=== PATIENT | male | born 1950 | race Asian ===

== ENCOUNTER 2019-03-14 16:40 | Emergency (ER) | payer MEDICAID ==
[~2019-03-14] VITALS: Ht 172.7 cm; Wt 91.6 kg
[2019-03-14 16:44] VITALS: Ht 172.7 cm; Wt 91.6 kg
[2019-03-14] MEDS ORDERED: KETOROLAC 30 MG INJ IM STA (17:25)
[2019-03-14] MEDS ORDERED: DEXAMETHASONE 10 MG/ML 1 ML INJ IM ONE (17:30)
--- NOTE | 2019-03-14 17:45 | ERD ---
ER Documentation Chief Complaint Chief Complaint COUGH X 4 DAYS , LT SIDE RIB PAIN WITH COUGH HPI 68-year-old male with past medical history of hypertension, diabetes who presents with complaint of dry cough over the past 4 days. Describes left upper quadrant pain with coughing. Denies recent fall or injury. Pain not made worse with moving only worsened with cough, nontender to touch. He otherwise denies fever, chills, chest pain, shortness of breath, dyspnea on exertion, nausea, vomiting, diarrhea, abdominal pain, urinary symptoms. Also complained of right knee pain history of osteoarthritis, has taken ibuprofen with some improvement in symptoms. He denies any recent injury or fall. Also describes symptoms of lower extremity neuropathy, currently on gabapentin medication. Patient states he has follow-up with his PMD on April 07, patient advised to discuss these issues with PMD at that time. He otherwise is without complaint with normal triage vital signs. ROS All systems reviewed and are negative except as per history of present illness. Medications Home Meds Active Scripts Naproxen* (Naprosyn*) 500 Mg Tablet, 500 MG PO BID PRN for PAIN AND/OR INFLAMMATION, #30 TAB Prov:CHRIS STRANGE PA-C 03/14/19 Dextromethorphan Hb-Promethazine Hcl* (Promethazine DM* Syrup) 473 Ml Syrup, 5 ML PO Q6 PRN for COUGH for 7 Days, ML Prov:CHRIS STRANGE PA-C 03/14/19 Allergies Allergies: Coded Allergies: No Known Allergy (Unverified , 03/14/19) PMhx/Soc Hx Cardiac Disorders: Yes (HTN) Hx Miscellaneous Medical Probl: Yes (Neuropathy,Hyperlipidemia) Hx Alcohol Use: Yes (occasional) Hx Substance Use: No Hx Tobacco Use: Yes Smoking Status: Former smoker FmHx Family History: No diabetes, No coronary disease, No other Physical Exam Vitals Vital Signs Date Temp Pulse Resp B/P (MAP) Pulse Ox O2 O2 Flow FiO2 Time Delivery Rate 03/14/19 98.1 69 18 180/91 98 16:44 (120) Physical Exam I have reviewed the triage vital signs. Const: Well nourished, well developed, appears stated age Eyes: PERRL, no conjunctival injection HENT: NCAT, Neck supple without meningismus CV: RRR, Warm, well-perfused extremities RESP: CTAB, Unlabored respiratory effort GI: soft, non-tender, non-distended, no masses MSK: No gross deformities appreciated, no tenderness to palpation along left rib cage, sternum Skin: Warm, dry. No rashes Neuro: grossly non focal Psych: Appropriate mood and affect. Results 24 hrs Current Medications Medications Dose Sig/Isamar Start Time Status Last (Trade) Ordered Route PRN Stop Time Admin Dose Reason Admin Ketorolac 30 mg ONCE STAT 03/14/19 DC 03/14/19 Tromethamine IM 17:25 03/14/19 17:40 (Toradol) 17:26 10 mg ONCE ONCE 03/14/19 DC 03/14/19 Dexamethasone IM 17:30 03/14/19 17:40 (Decadron) 17:31 Procedures/MDM This patient presents with acute cough, most consistent with. Differential diagnosis includes bronchitis, pneumonia, costochondritis, asthma, COPD. Presentation not consistent with acute bacterial pneumonia, influenza, asthma, transient airway hyperresponsiveness. Presentation not consistent with chronic causes of cough (including GERD, asthma, postnasal discharge, medication side effect, CHF, lung cancer or mass). I have low suspicion for any cardiac etiology to symptoms. Symptoms likely muscular skeletal given lack of red flag symptoms and exam. Symptoms likely musculoskeletal in nature. ED course: Chest x-ray without acute finding Patient given Toradol, single dose steroids for his pain complaints Will discharge with naproxen, cough medicine, PMD follow-up. DISPOSITION PLAN: We discussed follow up with the patient's primary care doctor within 24 to 48 hours. Patient counseled regarding my diagnostic impression and care plan. Prior to discharge all questions answered. Pt agrees with treatment plan and understands strict return precautions. Precautionary instructions provided including instructions to return to the ER if not improving or for any worsening or changing symptoms or concerns. Disclaimer: Inadvertent spelling and grammatical errors are likely due to EHR/dictation software use and do not reflect on the overall quality of patient care. Also, please note that the electronic time recorded on this note does not necessarily reflect the actual time of the patient encounter. Departure Diagnosis: Primary Impression: Cough Condition: Stable Patient Instructions: Cough, Chronic, Uncertain Cause, (Adult) Referrals: COMM[facility]ITY CLIN[facility] YOU HAVE RECEIVED A MEDICAL SCREENING EXAM AND THE RESULTS INDICATE THAT YOU DO NOT HAVE A CONDITION THAT REQUIRES URGENT TREATMENT IN THE EMERGENCY DEPARTMENT. FURTHER EVALUATION AND TREATMENT OF YOUR CONDITION CAN WAIT UNTIL YOU ARE SEEN IN YOUR DOCTORS OFFICE WITHIN THE NEXT 1-2 DAYS. IT IS YOUR RESPONSIBILITY TO M ALYSSA AN APPOINTMENT FOR FOLOW-UP CARE. IF YOU HAVE A PRIMARY DOCTOR --you should call your primary doctor and schedule an appointment IF YOU DO NOT HAVE A PRIMARY DOCTOR YOU CAN CALL OUR PHYSICIAN REFERRAL HOTLINE AT IF YOU CAN NOT AFFORD TO SEE A PHYSICIAN YOU CAN CHOSE FROM THE FOLLOWING [facility] [address] [facility] [address] [facility] [address] [facility] [address] [facility] [address] [facility]. [address] Additional Instructions: Call your primary care doctor TOMORROW for an appointment during the next 2-3 days.See the doctor sooner or return here if your condition worsens before your appointment time. CHRIS STRANGE PA-C Mar 14, 2019 17:45
[2019-03-14] MEDS ORDERED: D-ME473S2 PO (18:29)
[2019-03-14] MEDS ORDERED: NAPR-985 PO (18:29)
[2019-03-14 18:40] VITALS: BP 147/85; PULSE 66; RESP 19
== END 2019-03-14 18:42 | disposition home or self-care (01) ==
LOC: FTE 16:40
DX: R05 Cough (principal); E11.9 Type 2 diabetes mellitus without complications; I10 Essential (primary) hypertension
CPT/HCPCS: 71046; 96372; J1100; J1885; Z7502